=== PATIENT | male | born 1995 | race Two or more races ===

== ENCOUNTER 2018-01-05 16:24 | Emergency (ER) | payer SELFPAY ==
[~2018-01-05] VITALS: Ht 154.9 cm; Wt 56.7 kg
[~2018-01-05 16:24] MED LIST: ILOTYCIN3.5 GM BOTH EYES; LOMOTIL TABLET1 EACH PO; NKM; NORCO 5-325 TA1 EACH ORAL; TAMIFLU75 MG ORAL; ZOFRAN4 MG PO
[2018-01-05 16:27] VITALS: BP 116/64
[2018-01-05] MEDS ORDERED: Tylenol #3 tab (300mg/30mg) ORAL ONE (16:45)
--- NOTE | 2018-01-05 17:01 | Emergency Room Report ---
History of Present Illness General Chief Complaint: Multiple Trauma/Fall Source: Patient Present Illness HPI 22-year-old male presents to the emergency department complaining of localized 10 out of 10 in severity pain to his tailbone times one week. Patient reports that he fell while riding his skateboard and landed directly on that area. Patient states that the pain has not improved it has actually gotten worse. Patient denies any relieving factors he reports sitting and walking exacerbated his pain. Patient denies radiation of his pain or paresthesias. Denies previous injury to this area. Denies fevers, chills, recent spinal procedures or history of cancer. He states he did not hit his head and he did not his consciousness. He denies midline neck or back pain, saddle anesthesia, urinary retention, urinary or bowel incontinence. Allergies: Coded Allergies: NO KNOWN ALLERGIES (Unverified Allergy, Unknown, 12/22/14) Patient History Past Medical History: see triage record Past Surgical History: none Pertinent Family History: none Immunizations: UTD Reviewed Nursing Documentation: PMH: Agreed; PSxH: Agreed Nursing Documentation-PMH Past Medical History: No Stated History Review of Systems All Other Systems: negative except mentioned in HPI Physical Exam Vital Signs Date Time Temp Pulse Resp B/P (MAP) Pulse Ox O2 Delivery O2 Flow Rate FiO2 01/05/18 16:27 98.3 60 18 116/64 96 Room Air 98.2 Sp02 EP Interpretation: reviewed, normal General Appearance: alert, GCS 15, non-toxic, moderate distress - unable to find a POC Head: normocephalic, atraumatic Eyes: bilateral eye normal inspection, bilateral eye PERRL ENT: hearing grossly normal, normal voice Neck: full range of motion, no bony tend Respiratory: chest non-tender, lungs clear, normal breath sounds, speaking full sentences Cardiovascular #1: regular rate, rhythm Musculoskeletal: back normal, gait/station normal, normal range of motion, tender - TTP to the midline coxxyx Neurologic: alert, oriented x3, responsive, motor strength/tone normal, sensory intact, speech normal, grossly normal Psychiatric: judgement/insight normal Skin: normal color, no rash, warm/dry, well hydrated, other - bruise noted. Medical Decision Making PA Attestation Dr. Mendoza is my supervising Physician whom patient management has been discussed with. Diagnostic Impression: Primary Impression: Coccygeal contusion Qualified Codes: S30.0XXA - Contusion of lower back and pelvis, initial encounter Additional Impression: Sacral contusion Qualified Codes: S30.0XXA - Contusion of lower back and pelvis, initial encounter ER Course 22-year-old male presents to the emergency department complaining of localized 10 out of 10 in severity pain to his tailbone times one week. Patient reports that he fell while riding his skateboard and landed directly on that area. Patient states that the pain has not improved it has actually gotten worse. Patient denies any relieving factors he reports sitting and walking exacerbated his pain. Patient denies radiation of his pain or paresthesias. Denies previous injury to this area. Denies fevers, chills, recent spinal procedures or history of cancer. He states he did not hit his head and he did not his consciousness. He denies midline neck or back pain, saddle anesthesia, urinary retention, urinary or bowel incontinence. Ddx considered but are not limited to Fracture, dislocation, contusion, Sprain/ Strain/Spasm, Epidural abscess, Neoplastic mets. Vital signs: are WNL, pt. is afebrile H&PE are most consistent with musculoskeletal injury will perform imaging to r/ o fractures/dislocations. ORDERS: - X-ray Sacrum - negative for fx, Dislocation, or significant soft tissue injury, per preliminary read in ED, and signed by CAMILO Arzate, my supervising physician has reviewed, and agrees with my interpretation. ED INTERVENTIONS: - T3 PO d/w pt. the results of his xrays. -I do not identify an emergent condition at this time. With current presentation , pt. is stable for close outpatient follow up and conservative treatment. D/ w pt. to return promptly to ED with worsening or new symptoms.- Pt. verbalizes' understanding and agreement with proposed treatment plan.proposed treatment plan. DISCHARGE: At this time pt. is stable for d/c to home. Will provide printed patient care instructions, and any necessary prescriptions. Care plan and follow up instructions have been discussed with the patient prior to discharge. Other X-Ray Diagnostic Results Other X-Ray Diagnostic Results : X-Ray ordered: sacrum # of Views/Limited Vs Complete: 3 View Indication: Pain EP Interpretation: Yes CAMILO Xray: Interpretation reviewed, by supervising MD, and agrees with findings. Interpretation: no dislocation, no soft tissue swelling, no fractures Impression: No acute disease Electronically Signed by: Janell Arzate PA-C Last Vital Signs Date Time Temp Pulse Resp B/P (MAP) Pulse Ox O2 Delivery O2 Flow Rate FiO2 01/05/18 16:46 98.3 01/05/18 16:27 60 18 116/64 96 Room Air Disposition: HOME, SELF-CARE Condition: Stable Scripts Acetaminophen* (TYLENOL EXTRA STRENGTH*) 500 Mg Tablet 500 MG ORAL Q6H, #20 TAB 0 Refills Prov: Janell Arzate 01/05/18 Patient Instructions: Contusion, [id number] Additional Instructions: Take medications as directed. Follow up with a Primary Care Provider in 3-5 days, even if your symptoms have resolved. --Please review list of primary care clinics, if you do not already have a primary care provider Return sooner to ED if new symptoms occur, or current symptoms become worse. Do not drink alcohol, drive, or operate heavy machinery while taking [ ] as this may cause drowsiness. - Please note that this Emergency Department Report was dictated using [email or web address] preparer and liner technology software, occasionally this can lead to erroneous entry secondary to interpretation by the dictation equipment. Janell Arzate Jan 05, 2018 17:01
[2018-01-05] MEDS ORDERED: TYLENOL EXTRA500 MG ORAL (17:39)
[2018-01-05 17:45] VITALS: BP 116/64
--- NOTE | 2018-01-06 10:20 | Diagnostic Imaging Report ---
Indication: Sacral coccygeal pain. Trauma Comparison: None Findings: 3 views of the sacrum and coccyx were obtained. Findings: No acute fracture is identified. The sacroiliac joints are unremarkable. Sacral ala appear symmetric. There is some obscuring due to overlying bowel gas and stool. Impression: No acute injury identified.
== END 2018-01-05 17:45 | disposition home or self-care (01) ==
LOC: EMR 17:25
DX: S30.0XXA Contusion of lower back and pelvis, initial encounter (principal); W19.XXXA Unspecified fall, initial encounter; Y93.51 Activity, roller skating (inline) and skateboarding; Y92.9 Unspecified place or not applicable
CPT/HCPCS: 72220; 99283

== ENCOUNTER 2019-09-29 19:25 | Emergency (ER) | payer MEDICAID, OTHER ==
[~2019-09-29] VITALS: Ht 165.1 cm; Wt 63.0 kg
[~2019-09-29 19:25] MED LIST changes: +TYLENOL EXTRA500 MG ORAL
[2019-09-29 19:41] VITALS: BP 124/75
--- NOTE | 2019-09-29 19:41 | NUR ---
ED Nurse Note: pt presents to ED c/o penile px and bumps that he noticed 1 week ago. pt denies any changes in sexual partners, states his girlfriend is currently being treated for STD. pt denies any bleeding or discharge at this time. pt also states that he has had a cough and felt SOB at around the time he noticed the bumps. vitals noted to be stable in triage, afebrile, pt tearful upon exam about possibility of STD infection.
--- NOTE | 2019-09-29 20:12 | Emergency Room Report ---
History of Present Illness General Chief Complaint: Male Urogenital Problems Source: Patient Present Illness HPI 23-year-old male with no significant medical history here complaining of painful vesicular lesions in the posterior penile shaft x3 days. Patient reports that she is sexually active with her partner and partner was diagnosed with genital herpes. Patient denies any dysuria, scrotal pain and swelling. Denies penile discharge. Reports that also for the past week he has been short of breath and having diarrhea. Denies any loss of taste and smell, cough and congestion. Denies fever and chills. O2 sat within normal limits and patient is afebrile. Has not taken medication for symptom relief. Patient reported his significant other is and is wondering if the significant other needs to be treated for herpes as well. Has not taken medication for symptom relief. Comfortably with stable vital signs. Allergies: Coded Allergies: NO KNOWN ALLERGIES (Unverified Allergy, Unknown, 12/22/14) COVID-19 Screening Contact w/high risk pt: No Recent Travel to affected area: No Experienced COVID-19 symptoms?: Yes COVID-19 symptoms experienced: Shortness of Breath, Cough COVID-19 Testing performed [employer]: No Patient History Past Medical History: see triage record Past Surgical History: none Pertinent Family History: none Immunizations: UTD Reviewed Nursing Documentation: PMH: Agreed; PSxH: Agreed Nursing Documentation-PMH Past Medical History: No Stated History Review of Systems All Other Systems: negative except mentioned in HPI Physical Exam Vital Signs Date Time Temp Pulse Resp B/P (MAP) Pulse Ox O2 Delivery O2 Flow Rate FiO2 7/20 19:31 98.1 71 19 124/75 (91) 98 Room Air Sp02 EP Interpretation: reviewed, normal General Appearance: no apparent distress, alert, GCS 15, non-toxic Head: normocephalic, atraumatic Eyes: bilateral eye normal inspection, bilateral eye PERRL ENT: hearing grossly normal, normal pharynx, no angioedema, normal voice Neck: full range of motion, supple/symm/no masses Respiratory: chest non-tender, lungs clear, normal breath sounds, no rhonchi, no respiratory distress, no retraction, no wheezing, speaking full sentences Cardiovascular #1: regular rate, rhythm, no edema, no murmur Gastrointestinal: normal bowel sounds, non tender, soft, non-distended, no guarding, no rebound Genitourinary: no CVA tenderness, other - Vesicular lesions on erythematous base of the posterior lower Musculoskeletal: back normal Neurologic: alert, motor strength/tone normal, oriented x3, sensory intact, responsive, speech normal Skin: other - Vesicular lesions on erythematous base posterior shaft of penis Lymphatic: no adenopathy Medical Decision Making PA Attestation All diagnoses and treatment plans were reviewed and discussed with my supervising physician Dr. Chambers Diagnostic Impression: Primary Impression: Genital herpes Additional Impression: Suspected COVID-19 virus infection ER Course 23-year-old male with no significant medical history here complaining of painful vesicular lesions in the posterior penile shaft x3 days. Patient reports that she is sexually active with her partner and partner was diagnosed with genital herpes. Patient denies any dysuria, scrotal pain and swelling. Denies penile discharge. Reports that also for the past week he has been short of breath and having diarrhea. Denies any loss of taste and smell, cough and congestion. Denies fever and chills. O2 sat within normal limits and patient is afebrile. Has not taken medication for symptom relief. Patient reported his significant other is and is wondering if the significant other needs to be treated for herpes as well. Has not taken medication for symptom relief. Comfortably with stable vital signs. Ddx considered but are not limited to: v UTI, chlamydia, Gohnorrea, syphylis, HIV, herpes 1 or 2 Vital signs: are WNL, pt. is afebrile H&PE are most consistent with : Genital herpes, suspected COVID-19 ORDERS: UA, chest x-ray, acyclovir, albuterol inhaler, dicyclomine ED INTERVENTIONS: None required at this time. DISCHARGE: At this time pt. is stable for d/c to home. Will provide printed patient care instructions, and any necessary prescriptions. Care plan and follow up instructions have been discussed with the patient prior to discharge. Patient take medication as directed, contact significant other for testing and being treated with acyclovir due to status. Gave information to [facility] for covert testing. Patient to self isolate for 14 days. If worsening symptoms return to emergency room Chest X-Ray Diagnostic Results Chest X-Ray Diagnostic Results : Chest X-Ray Ordered: Yes # of Views/Limited/Complete: 1 View Indication: Shortness of Breath EP Interpretation: Yes PA Xray: Interpretation reviewed, by supervising MD, and agrees with findings. Interpretation: no consolidation, no effusion, no pneumothorax Impression: No acute disease Electronically Signed by: Toña Sanchez PA-C Last Vital Signs Date Time Temp Pulse Resp B/P (MAP) Pulse Ox O2 Delivery O2 Flow Rate FiO2 09/29/19 19:31 98.1 71 19 124/75 (91) 98 Room Air Disposition: HOME, SELF-CARE Condition: Stable Scripts Albuterol Sulfate (VENTOLIN HFA) 18 Gm Hfa.aer.ad 2 PUFFS INH EVERY 6 HOURS, #18 GM 0 Refills provide spacer Prov: Toña Marie 09/29/19 Dicyclomine Hcl* (DICYCLOMINE HCL*) 10 Mg Capsule 10 MG ORAL QID, #20 CAP Prov: Toña Marie 09/29/19 Acyclovir* (ACYCLOVIR*) 400 Mg Tablet 400 MG ORAL THREE TIMES A DAY for 7 Days, #21 TAB Prov: Toña Marie 09/29/19 Patient Instructions: Genital Herpes, Upper Respiratory Infection, Adult Additional Instructions: Take medication as directed, follow-up primary care provider, also have your significant other was to be tested and treated for herpes., Testing is highly recommended. Self isolate for 14 days. I have attached a list of STD clinics that he can go and get tested. Toña Marie Sep 29, 2019 20:12
[2019-09-29] MEDS ORDERED: VENTOLIN HFA18 GM INH (20:13)
[2019-09-29] MEDS ORDERED: DICYCLOMINE HCL10 MG ORAL (20:13)
[2019-09-29] MEDS ORDERED: ACYCLOVIR400 MG ORAL (20:13)
[2019-09-29 20:25] VITALS: BP 122/76
--- NOTE | 2019-09-29 20:25 | NUR ---
ER DISCHARGE NOTE: Patient is cleared to be discharged per ERMD, pt is aox4, on room air, with stable vital signs. pt was given dc and prescription instructions, pt was able to verbalize understanding, pt id band removed. pt is able to ambulate with steady gait. pt took all belongings.
[2019-09-29 21:12] LABS: BILIRUBIN, URINE NEGATIVE (NEGATIVE); COLOR,URINE PALE YELLOW; GLUCOSE, URINE (UA) NEGATIVE (NEGATIVE); KETONES,URINE NEGATIVE (NEGATIVE); LEUKOCYTE ESTERASE ,URINE NEGATIVE (NEGATIVE); NITRITE,URINE NEGATIVE (NEGATIVE); PH,URINE 8 (4.5-8.0); PROTEIN,URINE NEGATIVE (NEGATIVE); UROBILINOGEN,URINE NORMAL MG/DL (0.0-1.0)
[2019-09-29 21:13] LABS: APPEARANCE,URINE CLEAR
--- NOTE | 2019-09-30 14:34 | Diagnostic Imaging Report ---
Indication: Shortness of breath Technique: XRAY Chest 1v Comparison: 03/31/2014 Findings: Heart size and mediastinal contours are within normal limits for AP technique. There is no focal airspace consolidation, pneumothorax or pleural effusion. Osseous structures demonstrate no acute abnormality. Impression: No radiographic evidence of acute cardiopulmonary disease.
== END 2019-09-29 20:25 | disposition home or self-care (01) ==
LOC: EMR 19:45
DX: A60.00 Herpesviral infection of urogenital system, unspecified (principal); R06.02 Shortness of breath; R05 Cough
CPT/HCPCS: 71045; 81003; Z7502; 99283